=== PATIENT | female | born 1945 | race Caucasian/White ===

== ENCOUNTER → 2016-12-16 | Outpatient (CLI) | payer MEDICARE, BC ==
--- NOTE | 2016-12-16 14:41 | MM ---
Reason for exam: follow-up at short interval from prior study. Last mammogram was performed 8 months ago. History: Patient is postmenopausal and has history of high-risk lesion on a previous biopsy at age 70. High risk MG pre op needle loc RT of the right breast, June 08, 2016. Benign US biopsy breast VAD RT of the right breast, April 23, 2016. Took estrogen for 9 years beginning at age 52. Physical Findings: Nurse did not find any significant physical abnormalities on exam. MG 3D Diag Mammo W/Cad RT CC and MLO view(s) were taken of the right breast. Prior study comparison: April 23, 2016, right breast MG diagnostic mammo RT wo CAD. April 16, 2016, bilateral MG 3d diag mammo w/cad [id number]. There are scattered fibroglandular densities. Previous lumpectomy. No significant new findings when compared with previous films. These results were verbally communicated with the patient and result sheet given to the patient on 12/16/16. ASSESSMENT: Benign, BI-RAD 2 RECOMMENDATION: Routine screening mammogram of both breasts in 6 months.
--- NOTE | 2016-12-16 14:44 | USB ---
Reason for exam: follow-up at short interval from prior study. History: Patient is postmenopausal and has history of high-risk lesion on a previous biopsy at age 70. High risk MG pre op needle loc RT of the right breast, June 08, 2016. Benign US biopsy breast VAD RT of the right breast, April 23, 2016. Took estrogen for 9 years beginning at age 52. US Breast RT Right breast ultrasound including all four quadrants, the retroareolar region and axilla demonstrates a 0.6 x 0.3 x 0.8cm oval, cystic lesion at 12 o'clock. These results were verbally communicated with the patient and result sheet given to the patient on 12/16/16. ASSESSMENT: Benign, BI-RAD 2 RECOMMENDATION: Routine screening mammogram of both breasts in 6 months. Back on schedule.
== END | disposition home or self-care (01) ==
LOC: RADMAMWWP 13:19
PROVIDERS: ATTEND Surgery
DX: N64.4 Mastodynia (principal)
CPT/HCPCS: 76641; G0206; G0279

== ENCOUNTER 2018-06-17 22:18 | Emergency (ER) | payer MEDICARE, BC ==
[2018-06-17 22:41] VITALS: TEMP 97.8
[2018-06-17 22:59] VITALS: RESP 17
--- NOTE | 2018-06-17 23:07 | ED ---
Altered Mental Status HPI - General Chief Complaint: Altered Mental Status Stated Complaint: HBP Time Seen by Provider: 06/17/18 22:44 Source: patient, family Mode of arrival: ambulatory Limitations: no limitations - History of Present Illness Initial Comments: This patient is 72-year-old woman who presents to be evaluated for a period of confusion that she had earlier today. She states that she had been watching television and they mentioned hockey and for about 15 minutes she could not recall what hockey meant. She states she was also confused about some other things. Just prior to the onset of that she states she also had some visual symptoms that she referred to as an aura, mainly that her central vision seemed blurry. This affected both eyes. The patient states that all symptoms have resolved, but she has checked her blood pressure number times this evening and noted that it was creeping up. She states that it was in the neighborhood of 140 over 90s. She has taken all of her blood pressure medications and was concerned that this was too high. The patient does report she had the visual symptoms a few times a few years ago and saw the cloth edge singer was told that she may have had ocular migraine. MD Complaint: confusion -: hour(s) Severity: mild Associated Symptoms: other ("aura") - Related Data Home Medications Medication Instructions Recorded Confirmed Atenolol [Tenormin] 50 mg PO HS 06/05/16 06/08/16 Calcium Carbonate/Vitamin D3 2 each PO DAILY 06/05/16 06/08/16 [Calcium 600-Vit D3 200 Tablet] Furosemide [Lasix] 20 mg PO DAILY 06/05/16 06/08/16 Levothyroxine Sodium [Synthroid] 100 mcg PO QAM 06/05/16 06/05/16 Loratadine [Claritin] 10 mg PO DAILY 06/05/16 06/08/16 Losartan [Cozaar] 25 mg PO QAM 06/05/16 06/05/16 Ranitidine HCl [Zantac] 150 mg PO HS 06/05/16 06/08/16 Simvastatin [Zocor] 10 mg PO DAILY 06/05/16 06/08/16 Previous Rx's Medication Instructions Recorded Docusate [Colace] 100 mg PO BID #30 capsule 06/08/16 Hydrocodone/Acetaminophen [[place] 1 each PO Q6HR PRN #40 tab 06/08/16 5-325] Allergies Allergy/AdvReac Type Severity Reaction Status Date / Time Sulfa (Sulfonamide Allergy Rash/Hives Verified 06/17/18 22:41 Antibiotics) Review of Systems ROS Statement: Those systems with pertinent positive or pertinent negative responses have been documented in the HPI. ROS Other: All systems not noted in ROS Statement are negative. Constitutional: Denies: fever, weakness Eyes: Reports: vision change. Denies: eye pain, eye discharge Respiratory: Denies: cough, dyspnea Cardiovascular: Denies: chest pain, palpitations, edema Gastrointestinal: Denies: abdominal pain, nausea, vomiting Genitourinary: Denies: dysuria, hematuria Musculoskeletal: Denies: back pain Skin: Denies: rash Neurological: Reports: as per HPI, confusion. Denies: headache, weakness, numbness, paresthesias, abnormal gait, vertigo Past Medical History Past Medical History: GERD/Reflux, Hypertension, Thyroid Disorder Additional Past Medical History / Comment(s): varicose veins History of Any Multi-Drug Resistant Organisms: None Reported Past Surgical History: Hysterectomy Past Anesthesia/Blood Transfusion Reactions: No Reported Reaction Past Psychological History: No Psychological Hx Reported Smoking Status: Former smoker Past Alcohol Use History: None Reported Past Drug Use History: None Reported - Past Family History Mother Family Medical History: Cancer, Hypertension Additional Family Medical History / Comment(s): skin Father Family Medical History: Hypertension Sister(s) Additional Family Medical History / Comment(s): pseudomonas in lungs General Exam Limitations: no limitations General appearance: alert, in no apparent distress Head exam: Present: atraumatic, normocephalic Eye exam: Present: normal appearance, PERRL, EOMI. Absent: scleral icterus, conjunctival injection Course Vital Signs 06/17/18 06/17/18 22:36 22:55 Temperature 97.8 F Pulse Rate 75 77 Respiratory 20 17 Rate Blood Pressure 175/90 165/78 O2 Sat by Pulse 97 99 Oximetry Medical Decision Making - Lab Data Result diagrams: 06/17/18 23:48 06/17/18 23:48 Lab Results 06/17/18 06/17/18 06/17/18 Range/Units 23:48 23:48 23:48 WBC 7.7 (3.8-10.6) k/uL RBC 4.34 (3.80-5.40) m/uL Hgb 12.5 (11.4-16.0) gm/dL Hct 38.9 (34.0-46.0) % MCV 89.7 (80.0-100.0) fL MCH 28.9 (25.0-35.0) pg MCHC 32.3 (31.0-37.0) g/dL RDW 12.9 (11.5-15.5) % Plt Count 250 (150-450) k/uL Neutrophils % 61 % Lymphocytes % 26 % Monocytes % 4 % Eosinophils % 6 % Basophils % 0 % Neutrophils # 4.7 (1.3-7.7) k/uL Lymphocytes # 2.0 (1.0-4.8) k/uL Monocytes # 0.3 (0-1.0) k/uL Eosinophils # 0.5 (0-0.7) k/uL Basophils # 0.0 (0-0.2) k/uL Sodium 141 (137-145) mmol/L Potassium 4.2 (3.5-5.1) mmol/L Chloride 104 (98-107) mmol/L Carbon Dioxide 27 (22-30) mmol/L Anion Gap 10 mmol/L BUN 15 (7-17) mg/dL Creatinine 0.70 (0.52-1.04) mg/dL Est GFR (CKD-EPI)AfAm >90 (>60 ml/min/1.73 sqM) Est GFR (CKD-EPI)NonAf 87 (>60 ml/min/1.73 sqM) Glucose 112 H (74-99) mg/dL Calcium 9.7 (8.4-10.2) mg/dL Troponin I <0.012 (0.000-0.034) ng/mL Urine Color Urine Appearance (Clear) Urine pH (5.0-8.0) Ur Specific [place] (1.001-1.035) Urine Protein (Negative) Urine Glucose (UA) (Negative) Urine Ketones (Negative) Urine Blood (Negative) Urine Nitrite (Negative) Urine Bilirubin (Negative) Urine Urobilinogen (<2.0) mg/dL Ur Leukocyte Esterase (Negative) Urine RBC (0-5) /hpf Urine WBC (0-5) /hpf Ur Squamous Epith Cells (0-4) /hpf 06/17/18 Range/Units 23:48 WBC (3.8-10.6) k/uL RBC (3.80-5.40) m/uL Hgb (11.4-16.0) gm/dL Hct (34.0-46.0) % MCV (80.0-100.0) fL MCH (25.0-35.0) pg MCHC (31.0-37.0) g/dL RDW (11.5-15.5) % Plt Count (150-450) k/uL Neutrophils % % Lymphocytes % % Monocytes % % Eosinophils % % Basophils % % Neutrophils # (1.3-7.7) k/uL Lymphocytes # (1.0-4.8) k/uL Monocytes # (0-1.0) k/uL Eosinophils # (0-0.7) k/uL Basophils # (0-0.2) k/uL Sodium (137-145) mmol/L Potassium (3.5-5.1) mmol/L Chloride (98-107) mmol/L Carbon Dioxide (22-30) mmol/L Anion Gap mmol/L BUN (7-17) mg/dL Creatinine (0.52-1.04) mg/dL Est GFR (CKD-EPI)AfAm (>60 ml/min/1.73 sqM) Est GFR (CKD-EPI)NonAf (>60 ml/min/1.73 sqM) Glucose (74-99) mg/dL Calcium (8.4-10.2) mg/dL Troponin I (0.000-0.034) ng/mL Urine Color Colorless Urine Appearance Clear (Clear) Urine pH 6.5 (5.0-8.0) Ur Specific [place] 1.002 (1.001-1.035) Urine Protein Negative (Negative) Urine Glucose (UA) Negative (Negative) Urine Ketones Negative (Negative) Urine Blood Negative (Negative) Urine Nitrite Negative (Negative) Urine Bilirubin Negative (Negative) Urine Urobilinogen <2.0 (<2.0) mg/dL Ur Leukocyte Esterase Moderate H (Negative) Urine RBC <1 (0-5) /hpf Urine WBC 1 (0-5) /hpf Ur Squamous Epith Cells <1 (0-4) /hpf - EKG Data -: EKG Interpreted by Hi EKG shows normal: sinus rhythm, axis (Normal), intervals (Normal), QRS complexes (Normal), ST-T waves (Normal) Rate: normal (Rate is proximal 70 bpm) Interpretation: normal EKG Disposition Clinical Impression: Transient visual disturbance, bilateral Disposition: HOME SELF-CARE Condition: Good Instructions: Blurred Vision (ED) Is patient prescribed a controlled substance at d/c from ED?: No Referrals: Prasanna Feliz MD [Primary Care Provider] - 1-2 days Savana Ramos MD [STAFF PHYSICIAN] - 1-2 days
[2018-06-17 23:55] LABS: Basophils % (A) 0 %; Eosinophils # (A) 0.5 k/uL (0-0.7); Eosinophils % (A) 6 %; HCT 38.9 % (34.0-46.0); HGB 12.5 gm/dL (11.4-16.0); Lymphocytes % (A) 26 %; MCH 28.9 pg (25.0-35.0); MCHC 32.3 g/dL (31.0-37.0); MCV 89.7 fL (80.0-100.0); Mean Platelet Volume 7.6; Monocytes # (A) 0.3 k/uL (0-1.0); Monocytes % (A) 4 %; Neutrophils # (A) 4.7 k/uL (1.3-7.7); Neutrophils % (A) 61 %; Platelet Count 250 k/uL (150-450); RBC 4.34 m/uL (3.80-5.40); RDW 12.9 % (11.5-15.5); WBC 7.7 k/uL (3.8-10.6)
[2018-06-17 23:58] LABS: Appearance,Urine Clear (Clear); Bilirubin,Urine Negative (Negative); Blood,Urine Negative (Negative); Color,Urine Colorless; Glucose,Urine (UA) Negative (Negative); Ketones,Urine Negative (Negative); Leukocyte Esterase,Urine Moderate (Negative); Nitrite,Urine Negative (Negative); PH, Urine 6.5 (5.0-8.0); Protein,Urine Negative (Negative); RBC,Urine <1 /hpf (0-5); Specific Gravity,Urine 1.002 (1.001-1.035); Squamous Epithelial Cell,Urine <1 /hpf (0-4); Urobilinogen,Urine <2.0 mg/dL (<2.0); WBC,Urine 1 /hpf (0-5)
--- NOTE | 2018-06-18 00:10 | CT ---
EXAMINATION TYPE: CT brain wo con DATE OF EXAM: 06/18/2018 COMPARISON: HISTORY: AMS, Hypertension CT DLP: 1047.10 mGycm Automated exposure control for dose reduction was used. FINDINGS: There is some cerebral cortical atrophy. There is no mass effect nor midline shift. There is no sign of intracranial hemorrhage. The calvarium is intact. IMPRESSION: NEGATIVE CT SCAN OF THE BRAIN. MILD ATROPHY.
[2018-06-18 00:11] LABS: Anion Gap 10 mmol/L; Blood Urea Nitrogen 15 mg/dL (7-17); Calcium 9.7 mg/dL (8.4-10.2); Carbon Dioxide 27 mmol/L (22-30); Chloride 104 mmol/L (98-107); Glucose 112 mg/dL (74-99); Potassium 4.2 mmol/L (3.5-5.1); Sodium 141 mmol/L (137-145)
[2018-06-18 00:58] VITALS: BP 116/69; PULSE 67
== END 2018-06-18 00:58 | disposition home or self-care (01) ==
LOC: EC 22:18
DX: H53.8 Other visual disturbances (principal); R41.82 Altered mental status, unspecified; I10 Essential (primary) hypertension; K21.9 Gastro-esophageal reflux disease without esophagitis; E07.9 Disorder of thyroid, unspecified; Z87.891 Personal history of nicotine dependence; Z79.899 Other long term (current) drug therapy; Z88.2 Allergy status to sulfonamides
CPT/HCPCS: 36415; 70450; 80048; 81001; 84484; 85025; 93005; 99285

== ENCOUNTER → 2018-12-21 | Outpatient (CLI) | payer MEDICARE, BC ==
--- NOTE | 2018-12-22 10:09 | MM ---
Reason for exam: screening (asymptomatic). Last mammogram was performed 1 year and 3 months ago. History: Patient is postmenopausal and has history of high-risk lesion on a previous biopsy at age 70. High risk MG pre op needle loc RT of the right breast, June 08, 2016. Benign US biopsy breast VAD RT of the right breast, April 23, 2016. Took estrogen for 9 years beginning at age 52. Physical Findings: A clinical breast exam by your physician is recommended on an annual basis and results should be correlated with mammographic findings. MG 3D Screening Mammo W/Cad Bilateral CC and MLO view(s) were taken. Prior study comparison: September 08, 2017, bilateral MG 3d screening mammo w/cad. December 16, 2016, right breast MG 3d diag mammo w/cad RT. The breast tissue is heterogeneously dense. This may lower the sensitivity of mammography. Stable benign calcifications. There is no discrete abnormality. No significant changes when compared with prior studies. ASSESSMENT: Benign, BI-RAD 2 RECOMMENDATION: Routine screening mammogram of both breasts in 1 year.
== END | disposition home or self-care (01) ==
LOC: RADMAMWWP 09:30
PROVIDERS: ATTEND Obstetrics & Gynecology
DX: Z12.31 Encounter for screening mammogram for malignant neoplasm of breast (principal)
CPT/HCPCS: 77063; 77067

== ENCOUNTER 2019-05-27 13:25 | Emergency (ER) | payer MEDICARE, BC ==
[2019-05-27 14:12] VITALS: BP 122/80; PULSE 64; RESP 18; TEMP 98.1
--- NOTE | 2019-05-27 14:48 | ED ---
Upper Extremity HPI - General Chief Complaint: Extremity Injury, Upper Stated Complaint: Rt hand injury Time Seen by Provider: 05/27/19 14:16 Source: patient, family Mode of arrival: ambulatory Limitations: no limitations - History of Present Illness Initial Comments: 73yo female presenting today for the cc of right hand bruising/pain. Patient states that she fell 3 days ago while at a [employer] concert. She states that she fell forward after tripping, she states she is unsure if she extended her right arm or if it was behind her when she fell. She states she hit the anterior right knee. She states she has full ROM of the right wrist and finger, she states she can weight bear and ambulate without difficulty/ or pain in the right knee. Patient states she noticed bruising near the base of digits 4/5. She was concerned there may be a fracture and presented to the ER for evaluation. Denies numbness tingling, pain at elbow or shoulders. Denies head injury or LOC. Remaining ROS (-). Upon arrival patient appears well there is no signs of acute distress. - Related Data Home Medications Medication Instructions Recorded Confirmed Atenolol [Tenormin] 50 mg PO HS 06/05/16 06/08/16 Calcium Carbonate/Vitamin D3 2 each PO DAILY 06/05/16 06/08/16 [Calcium 600-Vit D3 200 Tablet] Furosemide [Lasix] 20 mg PO DAILY 06/05/16 06/08/16 Levothyroxine Sodium [Synthroid] 100 mcg PO QAM 06/05/16 06/05/16 Loratadine [Claritin] 10 mg PO DAILY 06/05/16 06/08/16 Losartan [Cozaar] 25 mg PO QAM 06/05/16 06/05/16 Ranitidine HCl [Zantac] 150 mg PO HS 06/05/16 06/08/16 Simvastatin [Zocor] 10 mg PO DAILY 06/05/16 06/08/16 Previous Rx's Medication Instructions Recorded Docusate [Colace] 100 mg PO BID #30 capsule 06/08/16 Hydrocodone/Acetaminophen [[place] 1 each PO Q6HR PRN #40 tab 06/08/16 5-325] Allergies Allergy/AdvReac Type Severity Reaction Status Date / Time Sulfa (Sulfonamide Allergy Rash/Hives Verified 06/17/18 22:41 Antibiotics) Review of Systems ROS Statement: Those systems with pertinent positive or pertinent negative responses have been documented in the HPI. ROS Other: All systems not noted in ROS Statement are negative. Past Medical History Past Medical History: GERD/Reflux, Hypertension, Thyroid Disorder Additional Past Medical History / Comment(s): varicose veins History of Any Multi-Drug Resistant Organisms: None Reported Past Surgical History: Hysterectomy Past Anesthesia/Blood Transfusion Reactions: No Reported Reaction Past Psychological History: No Psychological Hx Reported Smoking Status: Former smoker Past Alcohol Use History: None Reported Past Drug Use History: None Reported - Past Family History Mother Family Medical History: Cancer, Hypertension Additional Family Medical History / Comment(s): skin Father Family Medical History: Hypertension Sister(s) Additional Family Medical History / Comment(s): pseudomonas in lungs General Exam - General Exam Comments Initial Comments: General: The patient is awake and alert, in no distress, and does not appear acutely ill. Eye: Pupils are equal, round and reactive to light, extra-ocular movements are intact. No nystagmus. There is normal conjunctiva bilaterally. No signs of icterus. Cardiovascular: There is a regular rate and rhythm. No murmur, rub or gallop is appreciated. Respiratory: Lungs are clear to auscultation, respirations are non-labored, breath sounds are equal. No wheezes, stridor, rales, or rhonchi. Gastrointestinal: Soft, non-distended, non-tender abdomen without masses or organomegaly noted. There is no rebound or guarding present. No CVA tenderness. Bowel sounds are unremarkable. Musculoskeletal: Upon inspection of the right hand there is bruising of the hand dorsal aspect near base of digits #4 and 5. it extend towards the carpals of the lateral aspect. Patient has no point localized tenderness of the carpals. No anatomical snuffbox tenderness. Normal ROM at the wrists, elbows, MTP, PIP and DIP joints of the right hiand. Bruise over right knee, extensor mechanism intact. Able to weight bear and fully range at the right knee. Strength 5/5 of the UE and LE including at the right wrist and right knee. Sensation intact bot proximal and distal to injury site. Radial and DP pulses equal bilaterally 2+. Neurological: A&O x 3. CN II-XII intact, There are no obvious motor or sensory deficits. Coordination appears grossly intact. Speech is normal. Skin: Skin is warm and dry and no rashes or lesions are noted. Psychiatric: Cooperative, appropriate mood & affect, normal judgment. Limitations: no limitations Course Vital Signs 05/27/19 14:02 Temperature 98.1 F Pulse Rate 64 Respiratory 18 Rate Blood Pressure 122/80 O2 Sat by Pulse 98 Oximetry Procedures - Orthopedic Splinting/Casting Injury #1 Side: right Upper Extremity Injury Location: wrist Upper Extremity Immobilizer: volar splint Lower Extremity Immobilizer: Zac wrap, synthetic pre-padded splint Additional Comments: Neurovascular exam intact, post splint placement. Medical Decision Making - Medical Decision Making 73yo female presenting for cc of right hand bruising/pain after fall. Imaging studies which were reviewed personally. No evidence of fracture of the hand ho wever there was noted triquetrum fracture, does not appears displaced. Patient wrist was immobilized with splint. repeat neurovascular exam unchanged. Reviewed imaging studies with attending provider Dr. Schroeder. At this time we feel patient is stable for discharge with outpatient orthopedic surgery f/u. Patient states she has active care with hand surgeon Dr. Nair ([facility]). Patient return parameters and importance of f/u was discussed at length patient verbalized understanding. Disposition Clinical Impression: Triquetral fracture, Fall, Hand pain, right Disposition: HOME SELF-CARE Condition: Good Instructions (If sedation given, give patient instructions): Wrist Fracture in Adults (ED) Additional Instructions: Please use medication as discussed. Please follow-up with orthopedic surgery in the next 2-[address] Nair. Please return to emergency room if the symptoms increase or worsen or for any other concerns. Is patient prescribed a controlled substance at d/c from ED?: No Referrals: Prasanna Feliz MD [Primary Care Provider] - 1-2 days Kenneth Evangelista DO [Doctor of Osteopathic Medicine] - 1-2 days Time of Disposition: 15:12
--- NOTE | 2019-05-27 14:57 | XR ---
EXAMINATION TYPE: XR wrist complete RT DATE OF EXAM: 05/27/2019 COMPARISON: None HISTORY: Pain bruising across metacarpals TECHNIQUE: 4 view right wrist FINDINGS: On the lateral projection there appears to be a triquetral avulsion. Soft tissue swelling i s evident. Additional fractures are not identified. Joint spaces appear preserved. IMPRESSION: 1. Suspected triquetral avulsion from the dorsal right wrist lateral projection. 2. Superficial soft tissue swelling dorsum of the wrist.
--- NOTE | 2019-05-27 14:59 | XR ---
EXAMINATION TYPE: XR hand complete RT DATE OF EXAM: 05/27/2019 COMPARISON: Right wrist same date HISTORY: Pain bruising across right metacarpals TECHNIQUE: Three-view right hand FINDINGS: Displaced fractures are not identified within the hand. The findings at the dorsum of the w rist remain present. Suspected triquetral fracture may be present. There is soft tissue swelling over the dorsum of the wrist and hand. Advanced degenerative joint changes are present in the distal interphalangeal joint spaces. More mode rate proximal interphalangeal joint space and metacarpal phalangeal joint space narrowing is present. IMPRESSION: 1. Suspected triquetral fracture dorsal wrist. Please see wrist dictation same date. 2. Right hand appears intact without acute fractures. 3. There is advanced degenerative joint changes within the distal interphalangeal joint spaces.
== END 2019-05-27 15:30 | disposition home or self-care (01) ==
LOC: EC 13:25
DX: S62.111A Displaced fracture of triquetrum [cuneiform] bone, right wrist, initial encounter for closed fracture (principal); S80.01XA Contusion of right knee, initial encounter; I10 Essential (primary) hypertension; K21.9 Gastro-esophageal reflux disease without esophagitis; E07.9 Disorder of thyroid, unspecified; Z79.890 Hormone replacement therapy; Z79.899 Other long term (current) drug therapy; Z88.2 Allergy status to sulfonamides; Z87.891 Personal history of nicotine dependence; W01.0XXA Fall on same level from slipping, tripping and stumbling without subsequent striking against object, initial encounter; Y93.01 Activity, walking, marching and hiking
CPT/HCPCS: 29125; 99283

== ENCOUNTER → 2020-01-18 | Outpatient (CLI) | payer MEDICARE, BC ==
--- NOTE | 2020-01-22 09:08 | MM ---
Reason for exam: screening (asymptomatic). Last mammogram was performed 1 year and 1 month ago. History: Patient is postmenopausal and has history of high-risk lesion on a previous biopsy at age 70. High risk MG pre op needle loc RT of the right breast, June 08, 2016. Benign US biopsy breast VAD RT of the right breast, April 23, 2016. Took estrogen for 9 years beginning at age 52. Physical Findings: A clinical breast exam by your physician is recommended on an annual basis and results should be correlated with mammographic findings. MG 3D Screening Mammo W/Cad Bilateral CC and MLO view(s) were taken. Prior study comparison: December 21, 2018, bilateral MG 3d screening mammo w/cad. September 08, 2017, bilateral MG 3d screening mammo w/cad. The breast tissue is heterogeneously dense. This may lower the sensitivity of mammography. Surgical clips right breast. No significant changes when compared with prior studies. ASSESSMENT: Benign, BI-RAD 2 RECOMMENDATION: Routine screening mammogram of both breasts in 1 year.
== END | disposition home or self-care (01) ==
LOC: RADMAMWWP 13:18
PROVIDERS: ATTEND Family Medicine
DX: Z12.31 Encounter for screening mammogram for malignant neoplasm of breast (principal)
CPT/HCPCS: 77063; 77067

== ENCOUNTER → 2021-10-17 | Outpatient (CLI) | payer MEDICARE ==
--- NOTE | 2021-10-20 12:17 | MM ---
Reason for exam: screening (asymptomatic). Last mammogram was performed 1 year and 9 months ago. History: Patient is postmenopausal and has history of high-risk lesion on a previous biopsy at age 70. High risk MG pre op needle loc RT of the right breast, June 08, 2016. Benign US biopsy breast VAD RT of the right breast, April 23, 2016. Took estrogen for 9 years beginning at age 52. Physical Findings: A clinical breast exam by your physician is recommended on an annual basis and results should be correlated with mammographic findings. MG 3D Screening Mammo W/Cad Bilateral CC and MLO view(s) were taken. Prior study comparison: January 18, 2020, bilateral MG 3d screening mammo w/cad. December 21, 2018, bilateral MG 3d screening mammo w/cad. There are scattered fibroglandular densities. Finding #1: There are clips and architectural distortion in the right breast consistent with known excision changes. Finding #2: There are typically benign vascular, round calcifications in the left breast. There is no discrete abnormality. ASSESSMENT: Benign, BI-RAD 2 RECOMMENDATION: Routine screening mammogram of both breasts in 1 year.
== END | disposition home or self-care (01) ==
LOC: RADMAMWWP 11:14
PROVIDERS: ATTEND Family Medicine
DX: Z12.31 Encounter for screening mammogram for malignant neoplasm of breast (principal); Z78.0 Asymptomatic menopausal state
CPT/HCPCS: 77063; 77067

== ENCOUNTER 2023-12-02 17:49 | Emergency (ER) | payer MEDICARE ==
[2023-12-02 18:46] VITALS: RESP 18; TEMP 98.5
[2023-12-02] MEDS ORDERED: SODIUM CHLORIDE 0.9% 500 ML 500 ML IV STA (19:49)
--- NOTE | 2023-12-02 20:12 | XR ---
EXAMINATION TYPE: XR chest 2V DATE OF EXAM: 12/02/2023 8:07 PM CLINICAL INDICATION:Female, 78 years old with history of HTN. COMPARISON: None TECHNIQUE: XR chest 2V Frontal and lateral views of the chest. FINDINGS: Lungs/Pleura: There is no evidence of pleural effusion, focal consolidation, or pneumothorax. Pulmonary vascularity: Unremarkable. Heart/mediastinum: Cardiomediastinal silhouette is unremarkable. Musculoskeletal: No acute osseous pathology. Degenerative changes of the thoracic spine are present. Other findings: Postsurgical clips are noted in the right breast. IMPRESSION: No acute cardiopulmonary disease/process.
[2023-12-02 20:15] LABS: ALT 21 U/L (4-34); AST 27 U/L (14-36); African American GFR (CKD) >90 (>60 ml/min/1.73 sqM); Albumin 4.5 g/dL (3.5-5.0); Alkaline Phosphatase 90 U/L (38-126); Anion Gap 9 mmol/L; Blood Urea Nitrogen 15 mg/dL (7-17); Carbon Dioxide 24 mmol/L (22-30); Chloride 106 mmol/L (98-107); Glucose 107 mg/dL (74-99); Magnesium 2.1 mg/dL (1.6-2.3); Non-African American GFR(CKD) 88 (>60 ml/min/1.73 sqM); Potassium 3.8 mmol/L (3.5-5.1); Sodium 139 mmol/L (137-145); Total Bilirubin 0.5 mg/dL (0.2-1.3)
[2023-12-02 20:22] LABS: Basophils % (A) 0 %; Eosinophils # (A) 0.2 k/uL (0-0.7); Eosinophils % (A) 3 %; HCT 38.6 % (34.0-46.0); HGB 12.6 gm/dL (11.4-16.0); Lymphocytes # (A) 1.5 k/uL (1.0-4.8); Lymphocytes % (A) 21 %; MCH 29.7 pg (25.0-35.0); MCHC 32.7 g/dL (31.0-37.0); MCV 90.9 fL (80.0-100.0); Mean Platelet Volume 8.3; Monocytes # (A) 0.3 k/uL (0-1.0); Monocytes % (A) 4 %; Neutrophils # (A) 5.2 k/uL (1.3-7.7); Neutrophils % (A) 70 %; Platelet Count 264 k/uL (150-450); RBC 4.24 m/uL (3.80-5.40); RDW 13.6 % (11.5-15.5); WBC 7.3 k/uL (3.8-10.6)
--- NOTE | 2023-12-02 20:27 | ED ---
General Adult HPI - General Chief complaint: Recheck/Abnormal Lab/Rx Stated complaint: high blood pressure Time Seen by Provider: 12/02/23 18:55 Source: patient Mode of arrival: ambulatory Limitations: no limitations - History of Present Illness Initial comments: 78-year-old female presenting with chief complaint of elevated blood pressure. Patient states that at home today she was beginning to feel a bit shaky and anxious. She also states that she noted a fullness in the right ear. She took her blood pressure at home which ranged from the 150s to 160s systolic which is high compared to her baseline. She states that these symptoms have been persistent. She denies any chest pain, difficulty breathing, abdominal pain, nausea, vomiting, palpitations, numbness, tingling, weakness. Patient takes metoprolol losartan and Lasix which she has been adherent to. - Related Data Home Medications Medication Instructions Recorded Confirmed Furosemide [Lasix] 20 mg PO DAILY@169906/05/16 12/02/23 Levothyroxine Sodium [Synthroid] 100 mcg PO DAILY 06/05/16 12/02/23 Loratadine [Claritin] 10 mg PO DAILY@169906/05/16 12/02/23 Losartan [Cozaar] 25 mg PO BID 06/05/16 12/02/23 Simvastatin [Zocor] 10 mg PO DAILY@169906/05/16 12/02/23 Famotidine [Pepcid] 20 mg PO DAILY@169912/02/23 12/02/23 Metoprolol Tartrate [Lopressor] 50 mg PO BID 12/02/23 12/02/23 SUMAtriptan succinate [Imitrex] 25 mg PO BID PRN 12/02/23 12/02/23 clonazePAM [KlonoPIN] 0.5 mg PO TID PRN 12/02/23 12/02/23 Allergies Allergy/AdvReac Type Severity Reaction Status Date / Time Sulfa (Sulfonamide Allergy Rash/Hives Verified 12/02/23 19:53 Antibiotics) gluten AdvReac Intolerance Verified 12/02/23 19:53 Milk Containing Products AdvReac Intolerance Verified 12/02/23 19:53 (Dairy) [Dairy] Review of Systems ROS Statement: Those systems with pertinent positive or pertinent negative responses have been documented in the HPI. ROS Other: All systems not noted in ROS Statement are negative. Past Medical History Past Medical History: GERD/Reflux, Hypertension, Thyroid Disorder Additional Past Medical History / Comment(s): varicose veins History of Any Multi-Drug Resistant Organisms: None Reported Past Surgical History: Hysterectomy Past Anesthesia/Blood Transfusion Reactions: No Reported Reaction Past Psychological History: No Psychological Hx Reported Smoking Status: Never smoker Past Alcohol Use History: None Reported Past Drug Use History: None Reported - Past Family History Mother Family Medical History: Cancer, Hypertension Additional Family Medical History / Comment(s): skin Father Family Medical History: Hypertension Sister(s) Additional Family Medical History / Comment(s): pseudomonas in lungs General Exam Limitations: no limitations General appearance: alert, in no apparent distress Head exam: Present: atraumatic, normocephalic Eye exam: Present: normal appearance, EOMI Neck exam: Present: normal inspection Respiratory exam: Present: normal lung sounds bilaterally. Absent: respiratory distress, wheezes, rales, rhonchi, stridor Cardiovascular Exam: Present: regular rate, normal rhythm, normal heart sounds. Absent: systolic murmur, diastolic murmur, rubs, gallop, clicks Extremities exam: Absent: pedal edema Neurological exam: Present: alert, oriented X3 Psychiatric exam: Present: normal affect, normal mood Skin exam: Present: warm, dry Course Vital Signs 12/02/23 12/02/23 12/02/23 18:36 20:00 20:30 Temperature 98.5 F Pulse Rate 73 68 70 Respiratory 18 18 18 Rate Blood Pressure 179/93 143/78 140/80 O2 Sat by Pulse 95 98 98 Oximetry 12/02/23 21:00 Temperature Pulse Rate 68 Respiratory 18 Rate Blood Pressure 133/87 O2 Sat by Pulse 98 Oximetry EKG Findings - EKG Comments: EKG Findings:: Sinus rhythm ventricular rate 63. [place] interval 178. QRS 83. QT 392. QTC 399. No ST deviation. Medical Decision Making - Medical Decision Making Was pt. sent in by a medical professional or institution (, PA, BANDAGE MAKER, urgent care, hospital, or [place] [facility] facility...) When possible be specific @ -No Did you speak to anyone other than the patient for history (EMS, parent, family, police, friend...)? What history was obtained from this source @ -No Did you review nursing and triage notes (agree or disagree)? Why? @ -I reviewed and agree with nursing and triage notes Were old charts reviewed (outside hosp., previous admission, EMS record, old EKG, old radiological studies, urgent care reports/EKG's, [place] [facility] facility records)? Report findings @ -No old charts were reviewed Differential Diagnosis (chest pain, altered mental status, abdominal pain women, abdominal pain men, vaginal bleeding, weakness, fever, dyspnea, syncope, headache, dizziness, GI bleed, back pain, seizure, CVA, palpatations, mental health, musculoskeletal)? @ -Differential includes ME, hypertensive emergency, kidney disease, viral illness, this is not an all inclusive last EKG interpreted by me (3pts min.). @ -As above X-rays interpreted by me (1pt min.). @ -Chest x-ray shows no acute process CT interpreted by me (1pt min.). @ -None done U/S interpreted by me (1pt. min.). @ -None done What testing was considered but not performed or refused? (CT, X-rays, U/S, labs)? Why? @ -None What meds were considered but not given or refused? Why? @ -None Did you discuss the management of the patient with other professionals (professionals i.e. , PA, BANDAGE MAKER, lab, RT, psych nurse, social sciences department chair, supervisor cell maintenance, teacher, pharmaceutical officer, community case manager)? Give summary @ -No Was smoking cessation discussed for >3mins.? @ -No Was critical care preformed (if so, how long)? @ -No Were there social determinants of health that impacted care today? How? (Homelessness, low income, unemployed, alcoholism, drug addiction, transportation, low edu. Level, literacy, decrease access to med. care, detention, rehab)? @ -No Was there de-escalation of care discussed even if they declined (Discuss DNR or withdrawal of care, Hospice)? DNR status @ -No What co-morbidities impacted this encounter? (DM, HTN, Smoking, COPD, CAD, Cancer, CVA, ARF, Chemo, Hep., AIDS, mental health diagnosis, sleep apnea, morbid obesity)? @ -None Was patient admitted / discharged? Hospital course, mention meds given and route, prescriptions, significant lab abnormalities, going to OR and other pertinent info. @ -78-year-old female presenting with chief complaint of elevated blood pressure. At home her blood pressure was in the 150s to 160's systolic. She was feeling shaky and anxious. History and physical exam were conducted clear to auscultation and patient has no chest pain or difficulty breathing. Glucose is 107, otherwise lab work is grossly unremarkable. Chest x-ray shows no acute process and EKG shows sinus rhythm with no ischemic changes. On reassessment patient reports improvement in her symptoms. Her blood pressure is within normal limits. She is encouraged to keep a blood pressure diary and follow up with her PCP. Follow-up with PCP. Report back to ER with any new or worsening symptoms. Discussed return parameters and answered all questions. Patient conveyed verbal understanding and agreed to the plan. I discussed this case in detail with my attending Dr. Salas Undiagnosed new problem with uncertain prognosis? @ -No Drug Therapy requiring intensive monitoring for toxicity (Heparin, Nitro, Insulin, Cardizem)? @ -No Were any procedures done? @ -No Diagnosis/symptom? @ -hypertension Acute, or Chronic, or Acute on Chronic? @ -Acute on chronic Uncomplicated (without systemic symptoms) or Complicated (systemic symptoms)? @ -Uncomplicated Side effects of treatment? @ -No Exacerbation, Progression, or Severe Exacerbation? @ -No Poses a threat to life or bodily function? How? (Chest pain, USA, ME, pneumonia, PE, COPD, DKA, ARF, appy, cholecystitis, CVA, Diverticulitis, Homicidal, Suicidal, threat to staff... and all critical care pts) @ -Persistent hypertension and poses some threat, patient is encouraged to appear to her medications and follow-up with her PCP - Lab Data Result diagrams: 12/02/23 19:53 12/02/23 19:53 Lab Results 12/02/23 12/02/23 12/02/23 Range/Units 19:53 19:53 19:53 WBC 7.3 (3.8-10.6) k/uL RBC 4.24 (3.80-5.40) m/uL Hgb 12.6 (11.4-16.0) gm/dL Hct 38.6 (34.0-46.0) % MCV 90.9 (80.0-100.0) fL MCH 29.7 (25.0-35.0) pg MCHC 32.7 (31.0-37.0) g/dL RDW 13.6 (11.5-15.5) % Plt Count 264 (150-450) k/uL MPV 8.3 Neutrophils % 70 % Lymphocytes % 21 % Monocytes % 4 % Eosinophils % 3 % Basophils % 0 % Neutrophils # 5.2 (1.3-7.7) k/uL Lymphocytes # 1.5 (1.0-4.8) k/uL Monocytes # 0.3 (0-1.0) k/uL Eosinophils # 0.2 (0-0.7) k/uL Basophils # 0.0 (0-0.2) k/uL PT 10.3 (10.0-12.5) sec INR 0.9 (<1.2) APTT 24.2 (22.0-30.0) sec Sodium 139 (137-145) mmol/L Potassium 3.8 (3.5-5.1) mmol/L Chloride 106 (98-107) mmol/L Carbon Dioxide 24 (22-30) mmol/L Anion Gap 9 mmol/L BUN 15 (7-17) mg/dL Creatinine 0.61 (0.52-1.04) mg/dL Est GFR (CKD-EPI)AfAm >90 (>60 ml/min/1.73 sqM) Est GFR (CKD-EPI)NonAf 88 (>60 ml/min/1.73 sqM) Glucose 107 H (74-99) mg/dL Calcium 10.0 (8.4-10.2) mg/dL Magnesium 2.1 (1.6-2.3) mg/dL Total Bilirubin 0.5 (0.2-1.3) mg/dL AST 27 (14-36) U/L ALT 21 (4-34) U/L Alkaline Phosphatase 90 (38-126) U/L Troponin I (0.000-0.034) ng/mL Total Protein 7.0 (6.3-8.2) g/dL Albumin 4.5 (3.5-5.0) g/dL Influenza Type A (PCR) (Not Detectd) Influenza Type B (PCR) (Not Detectd) RSV (PCR) (Not Detectd) SARS-CoV-2 (PCR) (Not Detectd) 01/18/24 01/18/24 Range/Units 19:53 19:53 WBC (3.8-10.6) k/uL RBC (3.80-5.40) m/uL Hgb (11.4-16.0) gm/dL Hct (34.0-46.0) % MCV (80.0-100.0) fL MCH (25.0-35.0) pg MCHC (31.0-37.0) g/dL RDW (11.5-15.5) % Plt Count (150-450) k/uL MPV Neutrophils % % Lymphocytes % % Monocytes % % Eosinophils % % Basophils % % Neutrophils # (1.3-7.7) k/uL Lymphocytes # (1.0-4.8) k/uL Monocytes # (0-1.0) k/uL Eosinophils # (0-0.7) k/uL Basophils # (0-0.2) k/uL PT (10.0-12.5) sec INR (<1.2) APTT (22.0-30.0) sec Sodium (137-145) mmol/L Potassium (3.5-5.1) mmol/L Chloride (98-107) mmol/L Carbon Dioxide (22-30) mmol/L Anion Gap mmol/L BUN (7-17) mg/dL Creatinine (0.52-1.04) mg/dL Est GFR (CKD-EPI)AfAm (>60 ml/min/1.73 sqM) Est GFR (CKD-EPI)NonAf (>60 ml/min/1.73 sqM) Glucose (74-99) mg/dL Calcium (8.4-10.2) mg/dL Magnesium (1.6-2.3) mg/dL Total Bilirubin (0.2-1.3) mg/dL AST (14-36) U/L ALT (4-34) U/L Alkaline Phosphatase (38-126) U/L Troponin I <0.012 (0.000-0.034) ng/mL Total Protein (6.3-8.2) g/dL Albumin (3.5-5.0) g/dL Influenza Type A (PCR) Not Detected (Not Detectd) Influenza Type B (PCR) Not Detected (Not Detectd) RSV (PCR) Not Detected (Not Detectd) SARS-CoV-2 (PCR) Not Detected (Not Detectd) Disposition Clinical Impression: Hypertension Disposition: HOME SELF-CARE Condition: Good Instructions (If sedation given, give patient instructions): Hypertension (ED) Additional Instructions: Follow-up with PCP. Report back to ER if any new or worsening symptoms. Keep a diary of blood pressure readings until your follow-up appointment, try to keep these at consistent times, example measuring your blood pressure at breakfast lunch and dinner. Is patient prescribed a controlled substance at d/c from ED?: No Referrals: Prasanna Feliz MD [Primary Care Provider] - 1-2 days Time of Disposition: 21:10
[2023-12-02 20:29] LABS: INR 0.9 (<1.2); Partial Thromboplastin Time 24.2 sec (22.0-30.0); Prothrombin Time 10.3 sec (10.0-12.5)
[2023-12-02] MEDS ORDERED: MECLIZINE 12.5 MG TAB PO STA (20:56)
[2023-12-02 21:40] VITALS: BP 133/87; PULSE 68
== END 2023-12-02 21:35 | disposition home or self-care (01) ==
LOC: EC 17:49
DX: I10 Essential (primary) hypertension (principal); K21.9 Gastro-esophageal reflux disease without esophagitis; E07.9 Disorder of thyroid, unspecified; Z79.890 Hormone replacement therapy; Z79.899 Other long term (current) drug therapy; Z20.822 Contact with and (suspected) exposure to COVID-19; Z88.2 Allergy status to sulfonamides; Z91.011 Allergy to milk products; Z91.018 Allergy to other foods
CPT/HCPCS: 36415; 71046; 80053; 83735; 84484; 85025; 85610; 85730; 87636; 93005; 99284

== ENCOUNTER → 2024-09-15 | Outpatient (CLI) | payer MEDICARE ==
--- NOTE | 2024-09-18 12:36 | MM ---
Reason for Exam: Screening (asymptomatic). Last mammogram was performed 1 year(s) and 9 month(s) ago. Patient History: Menarche at age 13. First Full-Term at age 24. Left ovary removed at age 52. Right ovary removed at age 52. Hysterectomy at age 52. Postmenopausal. Estrogen for 9 years from age 52 until age 61. 06/08/2016, High risk Core Biopsy on the right side. 04/23/2016, Benign Core Biopsy on the right side. Risk Values: Araseli 5 year model risk: 2.3%. NCI Lifetime model risk: 4.1%. Prior Study Comparison: 01/18/2020 Bilateral Screening Mammogram, [facility]. 10/17/2021 Bilateral Screening Mammogram, [facility]. 01/05/2023 Bilateral MG 3D screening mammo w/cad, [facility]. Tissue Density: The breasts are heterogeneously dense, which may obscure small masses. Findings: Analyzed By CAD. There is no suspicious group of microcalcifications or new suspicious mass in either breast. A postsurgical change in the right breast. Findings are stable. Stable lymph nodes in the axilla. Overall Assessment: Benign, BI-RAD 2 Management: Screening Mammogram of both breasts in 1 year. . Patient should continue monthly self-breast exams. A clinical breast exam by your physician is recommended on an annual basis. This exam should not preclude additional follow-up of suspicious palpable abnormalities. Note on Araseli scores and lifetime risk: 1. A Araseli score greater than 3% is considered moderate risk. If this is the case, consider specialist referral to assess eligibility for a risk reducing agent. 2. If overall lifetime risk for the development of breast cancer is 20% or higher, the patient may qualify for future screening with alternating mammogram and breast MRI. [facility], , 09/18/2024 12:33 PM. Electronically signed and approved by: Maurice Benz M.D. Radiolog[facility]
== END | disposition home or self-care (01) ==
LOC: RADMAMWWP 15:19
PROVIDERS: ATTEND Family Medicine
DX: Z12.31 Encounter for screening mammogram for malignant neoplasm of breast (principal); R92.333 Mammographic heterogeneous density, bilateral breasts; Z78.0 Asymptomatic menopausal state
CPT/HCPCS: 77063; 77067